=== PATIENT | female | born 1945 | race Caucasian/White ===

== ENCOUNTER 2019-02-24 19:53 | Emergency (ER) | payer MEDICARE ==
[2019-02-24 20:21] VITALS: BP 143/76
--- NOTE | 2019-02-24 21:19 | UC ---
Laceration HPI - HPI Summary HPI Summary: 72-year-old female presents with complaints of a left thumb laceration that occurred just prior to arrival. States she was attempting to cut open a bag a paring knife and she slipped cutting the lateral aspect of her distal left thumb. Bleeding controlled prior to arrival using direct pressure. Patient states she is pretty certain her tetanus was updated within the last year. Denies any numbness or tingling. - History Of Current Complaint Chief Complaint: UCLaceration Stated Complaint: LEFT THUMB LACERATION Time Seen by Provider: 02/24/19 20:42 Hx Obtained From: Patient Pain Intensity: 10 - Allergies/Home Medications Allergies/Adverse Reactions: Allergies Allergy/AdvReac Type Severity Reaction Status Date / Time No Known Allergies Allergy Verified 02/24/19 20:06 Home Medications: Home Medications Dextroamphetamine/Amphetamine [Adderall 30 mg-] 1 tab PO DAILY 02/24/19 [ History Confirmed 02/24/19] Eye Drops For [place] 02/24/19 [History] Ibuprofen TAB* [Advil TAB*] 600 mg PO Q6H PRN 02/24/19 [History Confirmed ] Multivitamin [Multivitamins] 1 cap PO DAILY 02/24/19 [History Confirmed 02/24/19 ] PMH/Surg Hx/FS Hx/Imm Hx Previously Healthy: Yes - Denies significant PMH - Surgical History Surgical History: Yes Surgery Procedure, Year, and Place: TUBAL LIGATION - Family History Known Family History: Positive: Non-Contributory - Social History Occupation: Retired Lives: With Family Alcohol Use: Occasionally Substance Use Type: None Smoking Status (MU): Never Smoked Tobacco - Immunization History Most Recent Tetanus Shot: PT CANT RECALL Review of Systems All Other Systems Reviewed And Are Negative: Yes Constitutional: Negative: Fever, Chills Skin: Positive: Other - See HPI Respiratory: Positive: Negative Cardiovascular: Positive: Negative Gastrointestinal: Positive: Negative Genitourinary: Positive: Negative Motor: Negative: Weakness Neurovascular: Negative: Decreased Sensation Musculoskeletal: Negative: Arthralgia Neurological: Positive: Negative Is Patient Immunocompromised?: No Physical Exam Triage Information Reviewed: Yes Appearance: Well-Appearing, No Pain Distress, Well-Nourished Vital Signs: Initial Vital Signs Temp 98.4 F 02/24/19 20:10 Pulse 88 02/24/19 20:10 Resp 18 02/24/19 20:10 BP 143/76 02/24/19 20:10 Pulse Ox 96 02/24/19 20:10 Vital Signs Reviewed: Yes Respiratory: Positive: Lungs clear, Normal breath sounds, No respiratory distress Cardiovascular: Positive: RRR, No Murmur, Pulses Normal, Brisk Capillary Refill Abdominal Exam: Normal Musculoskeletal: Positive: Strength Intact, ROM Intact Neurological: Positive: Alert Skin: Positive: Significant Lesion(s) - 1 cm superficial laceration to the lateral left distal thumb without involvement of the nail. Bleeding controlled. Circulation and sensation intact. Laceration Repair - Laceration Repair 1 Description: Linear Laceration Size After Repair: Length (cm) - 1 Closure Material: Skin Adhesive Laceration Course/Dx - Course/Dx Course Of Treatment: 72-year-old female presents with complaints of a left thumb laceration that occurred just prior to arrival. States she was attempting to cut open a bag a paring knife and she slipped cutting the lateral aspect of her distal left thumb. Bleeding controlled prior to arrival using direct pressure. Patient states she is pretty certain her tetanus was updated within the last year. Denies any numbness or tingling. Afebrile. Hypertensive otherwise vital signs stable. Exam revealed a 1 cm linear superficial laceration to the lateral aspect of the distal left thumb without nail involvement. Bleeding controlled. The laceration was irrigated by the RN. I repaired the laceration using a skin adhesive. Follow-up with her primary care provider as needed. Wound care , anticipatory guidance, and warning symptoms were reviewed with the patient. Verbalizes understanding and agrees with plan of care. - Differential Dx - Laceration/Wound Differental Diagnoses: Laceration - Diagnosis Provider Diagnosis: Laceration of left thumb without damage to nail Discharge - Sign-Out/Discharge Documenting (check all that apply): Patient Departure All imaging exams completed and their final reports reviewed: No Studies - Discharge Plan Condition: Stable Disposition: HOME Patient Education Materials: Finger Laceration (ED), Skin Adhesive Care (ED) Referrals: Caridad Lima MD [Primary Care Provider] - If Needed Additional Instructions: Your laceration was repaired with a skin adhesive called Dermabond. The adhesive will slowly wear off over the next several days. Keep the adhesive dry for the next 24 hours. After 24 hours you may shower and wash your hands as unusual. Do not apply any lotions or ointments to the adhesive as this may dissolve the adhesive and cause the wound to reopen. Keep the wound covered with a dressing. Change this at least once a day or anytime the dressing becomes wet or soiled. Take acetaminophen (Tylenol) or ibuprofen (Advil, Motrin) according to directions as needed for pain. Watch for signs of infection including fever greater than 100.5 F, severe pain not managed with with pain medicine, redness that spreads, swelling of the finger, pus draining from the wound, or any worsening of symptoms. Seek immediate medical attention if any of these occur. Your blood pressure was elevated in the clinic today. It is recommended that you have this rechecked by your primary care provider within 4 weeks. - Billing Disposition and Condition Condition: STABLE Disposition: Home
== END 2019-02-24 21:30 | disposition home or self-care (01) ==
LOC: UCCORT 19:53
DX: S61.012A Laceration without foreign body of left thumb without damage to nail, initial encounter (principal); W26.0XXA Contact with knife, initial encounter; Y93.89 Activity, other specified; Y92.028 Other place in mobile home as the place of occurrence of the external cause
CPT/HCPCS: 12001; 99201; G0463